=== PATIENT | female | born 1960 | race Caucasian/White ===

== ENCOUNTER 2024-04-07 14:33 | Outpatient (CLI) | payer MEDICARE, SELFPAY ==
--- NOTE | 2024-04-07 15:00 | CRLHL7_ITS ---
For Patients: As a result of the Century Cures Act, medical imaging exams and procedure reports are released immediately into your electronic medical record. You may view this report before your referring provider. If you have questions, please contact your health care provider. XR DXA Bone Mineral Density (BMD) Reason for exam: Screening for osteoporosis. Current height (in): 65. Weight (lb): 170. Menopause age: 47. Ethnicity: White. 1. Have you had a previous hip or vertebral fracture? No. 2. Have you had any fractures during your adult life which did not result from significant trauma (e.g., auto accident)? No. 3. Did either of your parents have a hip fracture? No. 4. Do you smoke? No. 5. Have you ever taken Glucocorticoids? No. 6. Do you have rheumatoid arthritis? No. 7. Do you have secondary osteoporosis? No. 8. Do you drink 3 or more alcoholic drinks per day? No. 9. Are you being treated for osteoporosis? No. 10. Have you ever taken any of the following medications: Actonel, Evista, Fosamax, Miacalcin, Reclast, Boniva, Forteo, HRT (i.e., estrogen/hormone therapy), Protelos, Prolia, Vitamin D, Calcium, other ??? please specify. ANSWER: Yes, vitamin D. 11. Do you have any of the following medical conditions: Anorexia or bulimia, asthma or emphysema, end stage renal disease, hyperparathyroidism, any seizure disorders, cancer, inflammatory bowel diseases, hysterectomy, other ??? please specify. ANSWER: Yes, hysterectomy. 12. What was your maximum height (inches)? 66. 13. Do you perform weight bearing exercise regularly? No. 14. Do you regularly consume dairy products? No. 15. Do you drink caffeinated beverages? No. 16. At what age did your period start? 11. 17. Are you premenopausal? No. 18. How many full-term pregnancies have you had? 3. 19. Have you ever missed your period for more than 6 months in a row (not including or menopause)? No. TECHNIQUE: Bone mineral density study was performed using the [employer]. FINDINGS: The results of the study expressed as bone mineral density (BMD) are as follows: Lumbar spine L1 to L4: BMD: 0.682 g/cm2. T-score: -3.3. Z-score: -1.5 Neck Left: BMD: 0.625 g/cm2. T-score: -2.0. Z-score: -0.5 Right: BMD: 0.608 g/cm2. T-score: -2.2. Z-score: -0.6 Total Left: BMD: 0.766 g/cm2. T-score: -1.4. Z-score: -0.2 Right: BMD: 0.789 g/cm2. T-score: -1.3. Z-score: 0.0 *Comparison exams done prior to 08/2019 were performed on different unit, [employer]. IMPRESSION: Osteoporosis. Mateo Caruso M.D. Diagnostic Radiologist [email or web address] ANNETTE/kiarra [email or web address]/Dictated by: Mateo Caruso MD @ 04/08/2024 7:19:00 AM (Electronically Signed)
== END 2024-04-07 14:34 | disposition home or self-care (01) ==
LOC: RAD 14:36
PROVIDERS: PCP Family Medicine; Visit Provider Nurse Practitioner Family
DX: Z13.820 Encounter for screening for osteoporosis (principal); M81.0 Age-related osteoporosis without current pathological fracture
CPT/HCPCS: 77080

== ENCOUNTER 2024-05-11 13:15 | Outpatient (RCR) | payer MEDICARE, SELFPAY ==
--- NOTE | 2024-05-10 09:58 | URNOTE ---
Addendum entered by Bessie Johnson RN 05/10/24 10:03: approval dates are 05/03/2024-05/02/2025 Original Note: Prolia ([id number]) has been approved 05/03/2024-05/02/2024. Auth #[id number]
[2024-05-11 13:32] VITALS: BP 143/84; PULSE 90; RESP 16; TEMP 36.7; O2SAT 97
[2024-05-11] MEDS: DENOSUMAB 60 MG/ML SYRINGE SUBCUT (14:00)
--- NOTE | 2024-05-11 14:12 | ONC.NURNOTE ---
Pt here for 1st Prolia injection. Reviewed Clinical Pharm Pt Ed handout; consent signed. Questions answered. Pt is up to date on regular dental care; denies s/s infection or tooth issues. Reinforced to be seen by a dentist if any tooth pain or s/s infection; pt verbalizes understanding. Pt follows with Dell Turner CNP.
== END 2024-11-07 23:59 | disposition home or self-care (01) ==
LOC: CCIC 13:15
PROVIDERS: PCP Nurse Practitioner Family; Visit Provider Clinical Nurse Specialist
DX: M81.0 Age-related osteoporosis without current pathological fracture (principal)
CPT/HCPCS: 96372; J0897

== ENCOUNTER 2024-06-14 14:29 | Outpatient (CLI) | payer MEDICARE, SELFPAY | END 2024-06-14 14:30 | disposition home or self-care (01) | LOC: NFLDREF 14:30 | PROVIDERS: PCP Nurse Practitioner Family; Visit Provider Internal Medicine | DX: R55 Syncope and collapse (principal); N39.0 Urinary tract infection, site not specified | CPT/HCPCS: 80048; 87086 ==